=== PATIENT | female | born 1980 | race Caucasian/White ===

== ENCOUNTER 2021-10-14 17:10 | Emergency (ER) | payer OTHER ==
[2021-10-14] MEDS ORDERED: Ketamine HCl 50 MG/ML IV ONE (17:11)
[2021-10-14] MEDS ORDERED: FENTANYL 500 MCG/10 ML VIAL 1,500 MCG in Sodium Chloride 0.9% 150 ML 120 ML IV PRN (17:15)
[2021-10-14] MEDS ORDERED: Propofol 1000 mg/100 ml Bottle 100 ML IV ONE (17:20)
--- NOTE | 2021-10-14 17:20 | ERPHSYRPT ---
- History of Present Illness Time Seen by Provider: 10/14/21 17:15 Source: patient Exam Limitations: no limitations Physician History: Patient is a 41-year-old female presents to emergency department intubated status post respiratory arrest. Patient has a history of COPD and multiple blebs. Patient has multiple lung surgeries per family and state that patient is a lung transplant candidate. EMS reports that upon their arrival patient was in acute respiratory distress. They attempted to treat her with a CPAP however her oxygen level was 50%. Patient became unresponsive and she was subsequently intubated. Patient was intubated with a 7.0 ET tube. Upon her arrival her end- tidal was 45. Patient neurologically intact. Patient was awake and able to communicate via hand writing. We attempted to sedate her with propofol. Patient also on fentanyl drip. In spite she is awake. Patient requesting that we do not completely sedate her. D-dimer positive. CTA chest pending. We spoke to patient's mother who provided us with some information. Mother is the POA. Mother requesting that we transfer patient to [facility]. Patient's brother at bedside is in agreement with plan of care. HPI limited due to patient intubation. Timing/Duration: today Severity: severe Associated Symptoms: other (Unable to obtain associated symptoms as patient is intubated.) Allergies/Adverse Reactions: pertussis vaccine,adsorbed Allergy (Verified 10/14/21 17:55) - Review of Systems All Other Systems: Unable due to condition - Female History Hx Now: No - Nursing Vital Signs Nursing Vital Signs: Initial Vital Signs Pulse Rate 114 H 10/14/21 17:13 Respiratory Rate 19 10/14/21 17:13 Blood Pressure 89/71 10/14/21 17:13 O2 Sat by Pulse Oximetry 100 10/14/21 17:13 Pain Scale Pain Intensity 0 - Physical Exam General Appearance: alert, other (Patient intubated) Eye Exam: PERRL/EOMI, eyes nml inspection Ears, Nose, Throat Exam: normal ENT inspection, TMs normal, pharynx normal, moist mucous membranes Neck Exam: normal inspection, non-tender, supple, full range of motion Respiratory Exam: normal breath sounds, lungs clear, respiratory distress, other (Patient intubated) Cardiovascular Exam: regular rate/rhythm, normal heart sounds, normal peripheral pulses Gastrointestinal/Abdomen Exam: soft, normal bowel sounds, No tenderness, No mass Back Exam: normal inspection, normal range of motion, No CVA tenderness, No vertebral tenderness Extremity Exam: normal inspection, normal range of motion, pelvis stable Neurologic Exam: alert, oriented x 3, cooperative, normal mood/affect, nml cerebellar function, nml station & gait, sensation nml, No motor deficits Skin Exam: normal color, warm, dry, No rash Lymphatic Exam: No adenopathy SpO2 Interpretation: normal SpO2: 95 O2 Delivery: Room Air - Course Nursing assessment & vital signs reviewed: Yes EKG Interpreted by Me: RATE ([id number]), Sinus Rhythm, NORMAL AXIS, NORMAL INTERVALS - Radiology Exams Chest X-ray Interpretation: Interpreted by me (Atelectasis. Scarring from previous surgery.) - CT Exams Chest CT Interpretation: Tele-radiologist Report (No comps. Negative PE. Emphysema, scattered bilateral interstitial alveolar opacities. Mild bilateral effusions. ET tube tip just above marco.) Ordered Tests: Active Orders 24 hr Category Date Time Status Zumba Instructor STAT Care 10/14/21 17:14 Active EKG-ER Only STAT Care 10/14/21 17:13 Active IV Insertion STAT Care 10/14/21 17:13 Active Pulse Oximetry (ED) STAT Care 10/14/21 17:13 Active CHEST 1 VIEW (PORTABLE) Stat Exams 10/14/21 17:14 Taken CHEST WITH CONTRAST [CT] Stat Exams 10/14/21 17:53 Taken ABG [ARTERIAL BLOOD GASES] Stat Lab 10/14/21 17:25 Completed BLOOD CULTURE Stat Lab 10/14/21 17:17 Received CBC W DIFF Stat Lab 10/14/21 17:25 Completed CMP Stat Lab 10/14/21 17:25 Completed D-DIMER QUANTITATIVE Stat Lab 10/14/21 17:25 Completed Lactic Acid Stat Lab 10/14/21 17:25 Completed Lactic Acid Stat Lab 10/14/21 19:31 Completed MAGNESIUM Stat Lab 10/14/21 17:25 Completed Manual Differential NC Stat Lab 10/14/21 17:25 Completed TROPONIN Q3H Lab 10/14/21 17:25 Completed TROPONIN Q3H Lab 10/14/21 19:50 Received TROPONIN Q3H Lab 10/14/21 23:15 Ordered TROPONIN Q3H Lab 10/15/21 02:15 Ordered TROPONIN Q3H Lab 10/15/21 05:15 Ordered TSH [TSH, 3RD Generation] Stat Lab 10/14/21 17:47 Completed Urine Triage Profile Stat Lab 10/14/21 17:47 Completed Standby STAT RT 10/14/21 17:49 Active Vent Settings [Ventilator Management] STAT RT 10/14/21 17:49 Active Medication Summary Generic Name Dose Route Start Last Admin Trade Name Shagufta PRN Reason Stop Dose Admin Fentanyl Citrate 1,500 mcg/ 150 mls @ 0 mls/hr 10/14/21 17:15 Sodium Chloride IV 11/13/21 17:14 PRN PAIN Protocol 1 MCG/KG/HR Discontinued Medications Generic Name Dose Route Start Last Admin Trade Name Shagufta PRN Reason Stop Dose Admin Vancomycin HCl 1 gm in 200 mls @ 125 mls/hr 10/14/21 17:21 10/14/21 19:44 Vancomycin 1 Gram/200 Ml Bag IV 10/14/21 18:56 125 mls/hr STAT ONE 125 mls/hr Administration Propofol Confirm 10/14/21 17:20 Propofol 1000 Mg/100 Ml Bottle Administered 10/14/21 17:21 Dose 100 mls @ ud IV .STK-MED ONE Piperacillin Sod/Tazobactam 100 mls @ 200 mls/hr 10/14/21 17:22 10/14/21 19:31 Sod 3.375 gm/ Sodium Chloride IV 10/14/21 17:51 200 mls/hr STAT ONE Administration Norepinephrine/Dextrose Confirm 10/14/21 17:34 Norepinephrine 8 Mg/250 Ml-D5w Administered 10/14/21 17:35 Dose 8 mg in 250 mls @ ud IV .STK-MED ONE Sodium Chloride Confirm 10/14/21 17:56 Sodium Chloride 0.9% 1000 Ml Administered 10/14/21 17:57 Dose 1,000 mls @ ud .ROUTE .STK-MED ONE Sodium Chloride Confirm 10/14/21 19:26 Sodium Chloride 100ml Mini-Bag Plus Administered 10/14/21 19:27 Dose 100 mls @ ud IV .STK-MED ONE Vancomycin HCl Confirm 10/14/21 19:27 Vancomycin 1 Gram/200 Ml Bag Administered 10/14/21 19:28 Dose 1 gm in 200 mls @ ud IV .STK-MED ONE Piperacillin Sod/Tazobactam Sod Confirm 10/14/21 19:26 Piperacillin/Tazobactam Sodium 3.375 Gm Vial Administered 10/14/21 19:27 Dose 3.375 gm IV .STK-MED ONE Lab/Rad Data: Laboratory Result Diagrams 10/14/21 17:25 10/14/21 17:25 Laboratory Results 10/14/21 10/14/21 10/14/21 Range/Units 19:31 17:47 17:47 WBC (4.0-10.5) K/mm3 RBC (4.1-5.4) M/mm3 Hgb (12.0-16.0) gm/dl Hct (35-47) % MCV (78-100) fl MCH (26-32) pg MCHC (32-36) g/dl RDW (11.5-14.0) % Plt Count (150-450) K/mm3 MPV (7.5-11.0) fl D-Dimer (215-500) ng/mL Puncture Site pCO2 (35-45) mmHg pO2 (75-100) mmHg Base Excess (-2.0-2.0) O2 Saturation (94-100) g/dF ABG pH (7.35-7.45) ABG HCO3 (22-28) ABG O2 Sat (Measured) (95-100) % Pineda Test A-a Gradient a/A Ratio Hemoglobin Carboxyhemoglobin (0.0-6.9) % THgb Methemoglobin (1.4-1.5) % Potassium (3.5-5.1) Temperature C POC O2 Flow Rate % Sodium (137-145) mmol/L Chloride (98-107) mmol/L Carbon Dioxide (22-30) mmol/L Anion Gap (5-15) MEQ/L BUN (7-17) mg/dL Creatinine (0.52-1.04) mg/dL Estimated GFR ML/MIN Glucose (74-106) mg/dL Lactic Acid 1.2 (0.4-2.0) Calcium (8.4-10.2) mg/dL Magnesium (1.6-2.3) mg/dL Total Bilirubin (0.2-1.3) mg/dL AST (14-36) U/L ALT (0-35) U/L Alkaline Phosphatase (38-126) U/L Troponin I (0.000-0.034) ng/mL Serum Total Protein (6.3-8.2) g/dL Albumin (3.5-5.0) g/dL TSH 3rd Generation 2.410 (0.47-4.68) mIU/L Urine Opiates Level POSITIVE (NEGATIVE) Ur Methadone NEGATIVE (NEGATIVE) Urine Barbiturates NEGATIVE (NEGATIVE) Ur Phencyclidine (PCP) NEGATIVE (NEGATIVE) Urine Amphetamine NEGATIVE (NEGATIVE) U Benzodiazepine Level NEGATIVE (NEGATIVE) Urine Cocaine NEGATIVE (NEGATIVE) Urine Marijuana (THC) NEGATIVE (NEGATIVE) Influenza Type A Ag (NEGATIVE) Influenza Type B Ag (NEGATIVE) RSV (PCR) (Negative) SARS-CoV-2 (PCR) (NEGATIVE) 10/14/21 10/14/21 10/14/21 Range/Units 17:25 17:25 17:25 WBC (4.0-10.5) K/mm3 RBC (4.1-5.4) M/mm3 Hgb (12.0-16.0) gm/dl Hct (35-47) % MCV (78-100) fl MCH (26-32) pg MCHC (32-36) g/dl RDW (11.5-14.0) % Plt Count (150-450) K/mm3 MPV (7.5-11.0) fl D-Dimer 2294 H* (215-500) ng/mL Puncture Site RIGHT BRACHIAL pCO2 49 H (35-45) mmHg pO2 172 H* (75-100) mmHg Base Excess -2.1 L (-2.0-2.0) O2 Saturation 95.9 (94-100) g/dF ABG pH 7.31 L (7.35-7.45) ABG HCO3 24.7 (22-28) ABG O2 Sat (Measured) 99.5 (95-100) % Pineda Test NOT APPLICABLE A-a Gradient 480 a/A Ratio 0.26 Hemoglobin 9.1 Carboxyhemoglobin 2.6 (0.0-6.9) % THgb Methemoglobin 0.9 L (1.4-1.5) % Potassium 4.0 (3.5-5.1) Temperature 37.0 C POC O2 Flow Rate 100 % Sodium (137-145) mmol/L Chloride (98-107) mmol/L Carbon Dioxide (22-30) mmol/L Anion Gap (5-15) MEQ/L BUN (7-17) mg/dL Creatinine (0.52-1.04) mg/dL Estimated GFR ML/MIN Glucose (74-106) mg/dL Lactic Acid (0.4-2.0) Calcium (8.4-10.2) mg/dL Magnesium (1.6-2.3) mg/dL Total Bilirubin (0.2-1.3) mg/dL AST (14-36) U/L ALT (0-35) U/L Alkaline Phosphatase (38-126) U/L Troponin I 0.032 (0.000-0.034) ng/mL Serum Total Protein (6.3-8.2) g/dL Albumin (3.5-5.0) g/dL TSH 3rd Generation (0.47-4.68) mIU/L Urine Opiates Level (NEGATIVE) Ur Methadone (NEGATIVE) Urine Barbiturates (NEGATIVE) Ur Phencyclidine (PCP) (NEGATIVE) Urine Amphetamine (NEGATIVE) U Benzodiazepine Level (NEGATIVE) Urine Cocaine (NEGATIVE) Urine Marijuana (THC) (NEGATIVE) Influenza Type A Ag (NEGATIVE) Influenza Type B Ag (NEGATIVE) RSV (PCR) (Negative) SARS-CoV-2 (PCR) (NEGATIVE) 10/14/21 10/14/21 10/14/21 Range/Units 17:25 17:25 17:25 WBC 14.6 H (4.0-10.5) K/mm3 RBC 2.46 L (4.1-5.4) M/mm3 Hgb 8.7 L (12.0-16.0) gm/dl Hct 29.4 L (35-47) % MCV 119.5 H (78-100) fl MCH 35.4 H (26-32) pg MCHC 29.6 L (32-36) g/dl RDW 14.1 H (11.5-14.0) % Plt Count 307 (150-450) K/mm3 MPV 10.3 (7.5-11.0) fl D-Dimer (215-500) ng/mL Puncture Site pCO2 (35-45) mmHg pO2 (75-100) mmHg Base Excess (-2.0-2.0) O2 Saturation (94-100) g/dF ABG pH (7.35-7.45) ABG HCO3 (22-28) ABG O2 Sat (Measured) (95-100) % Pineda Test A-a Gradient a/A Ratio Hemoglobin Carboxyhemoglobin (0.0-6.9) % THgb Methemoglobin (1.4-1.5) % Potassium 3.9 (3.5-5.1) Temperature C POC O2 Flow Rate % Sodium 137 (137-145) mmol/L Chloride 100 (98-107) mmol/L Carbon Dioxide 23 (22-30) mmol/L Anion Gap 17.1 H (5-15) MEQ/L BUN 19 H (7-17) mg/dL Creatinine 0.86 (0.52-1.04) mg/dL Estimated GFR > 60.0 ML/MIN Glucose 220 H (74-106) mg/dL Lactic Acid 5.7 H (0.4-2.0) Calcium 7.5 L (8.4-10.2) mg/dL Magnesium 1.9 (1.6-2.3) mg/dL Total Bilirubin 0.60 (0.2-1.3) mg/dL AST 49 H (14-36) U/L ALT 33 (0-35) U/L Alkaline Phosphatase 158 H (38-126) U/L Troponin I (0.000-0.034) ng/mL Serum Total Protein 4.8 L (6.3-8.2) g/dL Albumin 2.5 L (3.5-5.0) g/dL TSH 3rd Generation (0.47-4.68) mIU/L Urine Opiates Level (NEGATIVE) Ur Methadone (NEGATIVE) Urine Barbiturates (NEGATIVE) Ur Phencyclidine (PCP) (NEGATIVE) Urine Amphetamine (NEGATIVE) U Benzodiazepine Level (NEGATIVE) Urine Cocaine (NEGATIVE) Urine Marijuana (THC) (NEGATIVE) Influenza Type A Ag (NEGATIVE) Influenza Type B Ag (NEGATIVE) RSV (PCR) (Negative) SARS-CoV-2 (PCR) (NEGATIVE) 10/14/21 Range/Units 17:23 WBC (4.0-10.5) K/mm3 RBC (4.1-5.4) M/mm3 Hgb (12.0-16.0) gm/dl Hct (35-47) % MCV (78-100) fl MCH (26-32) pg MCHC (32-36) g/dl RDW (11.5-14.0) % Plt Count (150-450) K/mm3 MPV (7.5-11.0) fl D-Dimer (215-500) ng/mL Puncture Site pCO2 (35-45) mmHg pO2 (75-100) mmHg Base Excess (-2.0-2.0) O2 Saturation (94-100) g/dF ABG pH (7.35-7.45) ABG HCO3 (22-28) ABG O2 Sat (Measured) (95-100) % Pineda Test A-a Gradient a/A Ratio Hemoglobin Carboxyhemoglobin (0.0-6.9) % THgb Methemoglobin (1.4-1.5) % Potassium (3.5-5.1) Temperature C POC O2 Flow Rate % Sodium (137-145) mmol/L Chloride (98-107) mmol/L Carbon Dioxide (22-30) mmol/L Anion Gap (5-15) MEQ/L BUN (7-17) mg/dL Creatinine (0.52-1.04) mg/dL Estimated GFR ML/MIN Glucose (74-106) mg/dL Lactic Acid (0.4-2.0) Calcium (8.4-10.2) mg/dL Magnesium (1.6-2.3) mg/dL Total Bilirubin (0.2-1.3) mg/dL AST (14-36) U/L ALT (0-35) U/L Alkaline Phosphatase (38-126) U/L Troponin I (0.000-0.034) ng/mL Serum Total Protein (6.3-8.2) g/dL Albumin (3.5-5.0) g/dL TSH 3rd Generation (0.47-4.68) mIU/L Urine Opiates Level (NEGATIVE) Ur Methadone (NEGATIVE) Urine Barbiturates (NEGATIVE) Ur Phencyclidine (PCP) (NEGATIVE) Urine Amphetamine (NEGATIVE) U Benzodiazepine Level (NEGATIVE) Urine Cocaine (NEGATIVE) Urine Marijuana (THC) (NEGATIVE) Influenza Type A Ag NEGATIVE (NEGATIVE) Influenza Type B Ag NEGATIVE (NEGATIVE) RSV (PCR) NEGATIVE (Negative) SARS-CoV-2 (PCR) NEGATIVE (NEGATIVE) - Progress Progress: improved Progress Note: Case discussed with hospitalist at [facility] who accepts transfer to ICU. Patient's mother POA at agrees with plan of care as is patient's brother. Patient agrees to transfer as well. CT chest negative for acute findings. Portions of this note were created with voice recognition technology. There may be grammatical, spelling, punctuation or sound alike errors 10/14/21 19:05 10/14/21 20:28 Lactic acidosis resolved 10/14/21 20:29 Counseled pt/family regarding: lab results, diagnosis, rad results - Departure Departure Disposition: Transfer Clinical Impression: Hypothermia, Acute respiratory failure, Leukocytosis, Megaloblastic anemia, Lactic acidosis Condition: Stable Critical Care Time: No Critical Care Time(excluding separately billable procedures): Critical 75-104 mins Referrals: DOCTOR,NO FAMILY [NON-STAFF PHY W/O PRIVILEGES] - Follow up/PCP as directed Additional Instructions: Discharge/Care Plan HAN CASTRO was seen on 10/14/21 in the Emergency Room. The patient was counseled regarding Diagnosis,Lab results, Imaging studies, need for follow up and when to return to the Emergency Room. Prescriptions given: Discharge Note I have spoken with the patient and/or caregivers. I have explained the patient's condition, diagnosis and treatment plan based on the information available to me at this time. I have answered the patient's and/or caregiver's questions and addressed any concerns. The patient and/or caregivers have as good understanding of the patient's diagnosis, condition and treatment plan as can be expected at this point. The vital signs have been stable. The patient's condition is stable and appropriate for discharge from the emergency department. The patient will pursue further outpatient evaluation with the primary care physician or other designated or consulting physician as outlined in the discharge instructions. The patient and/or caregivers are agreeable to this plan of care and follow-up instructions have been explained in detail. The patient and/or caregivers have received these instruction. The patient/and or caregivers are aware that any significant change in condition or worsening of symptoms should prompt an immediate return to this or the closest emergency department or call 911.
[2021-10-14] MEDS ORDERED: VANCOMYCIN 1 GRAM/200 ML BAG 1 GM/200 ML PIGGYBACK IV ONE ×2 (17:21→19:27)
[2021-10-14] MEDS ORDERED: PIPERACILLIN/TAZOBACTAM 3.375 GM in Sodium Chloride 100ML MINI-BAG PLUS 100 ML IV ONE (17:22)
[2021-10-14 17:29] LABS: A-aADO2 480; ABG HEMOGLOBIN 9.1; ABG SITE RIGHT BRACHIAL; ARTERIAL BLD GAS O2 SATURATION 99.5 % (95-100); ARTERIAL BLOOD GAS BASE EXCESS -2.1 (-2.0-2.0); ARTERIAL BLOOD GAS FIO2 100 %; ARTERIAL BLOOD GAS PCO2 49 mmHg (35-45); ARTERIAL BLOOD GAS PO2 172 mmHg (75-100); ARTERIAL BLOOD GAS pH 7.31 (7.35-7.45); CARBOXYHEMOGLOBIN 2.6 % THgb (0.0-6.9); HCO3- 24.7 (22-28); HGB O2 SAT 95.9 g/dF (94-100); Methhemoglobin 0.9 % (1.4-1.5)
[2021-10-14] MEDS ORDERED: NOREPINEPHRINE 8 MG/250 ML-D5W 8 MG/250 ML PLAST..BAG IV ONE (17:34)
[2021-10-14 17:39] LABS: Hematocrit 29.4 % (35-47); Hemoglobin 8.7 gm/dl (12.0-16.0); Mean Cell Volume 119.5 fl (78-100); Mean Corpuscular Hemoglobin 35.4 pg (26-32); Mean Corpuscular Hgb Concent. 29.6 g/dl (32-36); Mean Platelet Volume 10.3 fl (7.5-11.0); Platelet Count 307 K/mm3 (150-450); Red Blood Count 2.46 M/mm3 (4.1-5.4); Red Cell Distribution Width 14.1 % (11.5-14.0); White Blood Count 14.6 K/mm3 (4.0-10.5)
[2021-10-14 17:47] LABS: ALBUMIN 2.5 g/dL (3.5-5.0); ALKALINE PHOSPHATASE 158 U/L (38-126); ANION GAP 17.1 MEQ/L (5-15); BLOOD UREA NITROGEN 19 mg/dL (7-17); CHLORIDE 100 mmol/L (98-107); Calcium 7.5 mg/dL (8.4-10.2); Carbon Dioxide 23 mmol/L (22-30); Creatinine 1 0.86 mg/dL (0.52-1.04); EST GLOMERULAR FILTRATION RATE > 60.0 ML/MIN; Glucose 220 mg/dL (74-106); MAGNESIUM 1.9 mg/dL (1.6-2.3); Potassium 3.9 mmol/L (3.5-5.1); SGOT/AST 49 U/L (14-36); SGPT/ALT 33 U/L (0-35); SODIUM 137 mmol/L (137-145); Total Protein 4.8 g/dL (6.3-8.2)
[2021-10-14] MEDS ORDERED: Sodium Chloride 0.9% 1000 ML 1,000 ML ONE (17:56)
[2021-10-14 18:09] LABS: INFLUENZA A NEGATIVE (NEGATIVE); INFLUENZA B NEGATIVE (NEGATIVE); RESPIRATORY SYNCTIAL VIRUS NEGATIVE (Negative); SARS-CoV-2 Xpert Express NEGATIVE (NEGATIVE)
[2021-10-14 18:31] VITALS: BP 74/47; PULSE 101
[2021-10-14 18:45] LABS: Amphetamine,Urine NEGATIVE (NEGATIVE); Barbiturate,Urine NEGATIVE (NEGATIVE); Benzodiazepine,Urine NEGATIVE (NEGATIVE); Cocaine,Urine NEGATIVE (NEGATIVE); Methadone,Urine NEGATIVE (NEGATIVE); Opiate,Urine POSITIVE (NEGATIVE); PCP,Urine NEGATIVE (NEGATIVE); THC,Urine NEGATIVE (NEGATIVE)
[2021-10-14 19:03] VITALS: O2SAT 95
[2021-10-14] MEDS ORDERED: Sodium Chloride 100ML MINI-BAG PLUS 100 ML IV ONE (19:26)
[2021-10-14] MEDS ORDERED: PIPERACILLIN/TAZOBACTAM IV ONE (19:26)
[2021-10-14 21:01] LABS: ABO TYPING A; Antibody Screen NEGATIVE (NEGATIVE); RH TYPING POSITIVE
[2021-10-15 01:01] LABS: Basophil 1 % (0.0-1.0); Lymphocytes 7 % (24-44); Macrocytosis 1+; Monocyte 5 % (0.0-12.0); Neutrophils 87 % (36.0-66.0); Platelet Estimate NORMAL (NORMAL); Total Cells Counted 100
--- NOTE | 2021-10-15 08:45 | XRAY ---
Indication: Elevated d-dimer. Multiple contiguous axial images obtained through the chest using 65 cc Isovue 370 contrast and PE protocol. Comparison: None There is good opacification of the pulmonary arteries to include the lobar and segmental branches. No pulmonary embolus. Heart is not enlarged. Aorta is normal in course and caliber. Endotracheal tube tip 1 cm above marco. No pathologic mediastinal/hilar lymphadenopathy. Lungs demonstrates diffuse pulmonary emphysema with scattered fibrosis/scarring. There is right mid to upper lung postsurgical changes with right lung volume loss. Left upper lung suture material. Mild diffuse bilateral scattered interstitial alveolar opacities greatest in both lung bases with small bilateral effusions. 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 Base left neck demonstrates incompletely visualized IV catheter with tip in the subcutaneous soft tissues with associated small subcutaneous tedious emphysema. Limited upper abdomen unremarkable. Impression: 1. Negative pulmonary embolus. 2. Diffuse bilateral interstitial alveolar opacities with small bilateral effusions. 3. Extensive pulmonary emphysema with scattered fibrosis/scarring and bilateral lung postsurgical changes. 4. Endotracheal tube tip 1 cm above marco. Partially visualized left neck IV catheter with tip in subcutaneous soft tissues with subcutaneous emphysema.
--- NOTE | 2021-10-15 08:49 | XRAY ---
Indication: Tube placement. Unresponsive. Bilateral upper Comparison: None Portable chest demonstrate endotracheal tube tip 2 cm above marco. Left neck demonstrates partially visualized IV catheter. No pneumothorax. Remaining lungs demonstrates right upper lung posterior pleural changes with right lung volume loss. Left apical suture material. Remaining lungs demonstrates diffuse scattered interstitial alveolar opacities, greatest right base. No consolidation/large effusion. Heart not enlarged. Bony thorax intact with old nonunited left 5 rib fracture. Impression: 1. Endotracheal tube tip in good position. Incidental partially visualized left neck IV catheter. 2. Diffuse bilateral interstitial alveolar opacities. Rule out pneumonia. 3. Bilateral postsurgical changes.
== END 2021-10-14 20:46 | disposition short-term general hospital (02) ==
LOC: ED 17:10 → MERGE 17:10 → EDBD 17:10 → ED 20:46
DX: J96.00 Acute respiratory failure, unspecified whether with hypoxia or hypercapnia (principal); T68.XXXA Hypothermia, initial encounter; D72.829 Elevated white blood cell count, unspecified; D53.1 Other megaloblastic anemias, not elsewhere classified; E87.2 Acidosis; J44.9 Chronic obstructive pulmonary disease, unspecified; Z20.828 Contact with and (suspected) exposure to other viral communicable diseases
CPT/HCPCS: 0241U; 36000; 36415; 36600; 71045; 71260; 80053; 80307; 82375; 82803; 83605; 83735; 84443; 84484; 85025; 85379; 86850; 86900; 86901; 87040; 93005; 93041; 94002; 94760; 94799; 96365; 96367; 96374; 96376; 99285; 99291; 99292; J2704; J3370